=== PATIENT | female | born 1985 | race Asian ===

== ENCOUNTER 2018-02-17 05:20 | Emergency (ER) | payer OTHER ==
[~2018-02-17] VITALS: Ht 157.5 cm; Wt 68.0 kg
[~2018-02-17 05:20] MED LIST: CIPRO250 M1 PO
[2018-02-17] MEDS ORDERED: DIFLUCAN150 MG PO (05:57)
[2018-02-17 06:17] VITALS: BP 119/69
== END 2018-02-17 06:18 | disposition home or self-care (01) ==
LOC: M.ERS 05:20
DX: N76.0 Acute vaginitis (principal)

== ENCOUNTER 2018-04-08 04:20 | Emergency (ER) | payer OTHER ==
[~2018-04-08] VITALS: Ht 157.5 cm; Wt 68.0 kg
[~2018-04-08 04:20] MED LIST changes: +DIFLUCAN150 MG PO
[2018-04-08 04:57] LABS: URINE BILIRUBIN NEGATIVE (Negative); URINE BLOOD TRACE (Negative); URINE CLARITY CLEAR; URINE COLOR YELLOW; URINE GLUCOSE-RANDOM NEGATIVE (Negative); URINE KETONES NEGATIVE (Negative); URINE LEUKOCYTES-REFLEX TRACE (Negative); URINE NITRITE-REFLEX NEGATIVE (Negative); URINE PROTEIN NEGATIVE (Negative); URINE SPECIFIC GRAVITY 1.025 (1.005-1.030); URINE UROBILINOGEN 0.2 E.U./dl (0.2-1.0)
[2018-04-08 05:06] VITALS: BP 117/74
[2018-04-08 05:10] LABS: BACTERIA-REFLEX >30 Many /HPF (None Seen); CASTS None Seen /LPF (None Seen); CRYSTALS None Seen /LPF (None Seen); MUCUS 4-6 Moderate strn/LPF (None Seen); SQUAMOUS 4-10 Moderate /LPF (0-3); URINE RBC 3-10 Few /HPF (0-2); URINE WBC-REFLEX 6-15 Few /HPF (0-5)
== END 2018-04-08 05:09 | disposition home or self-care (01) ==
LOC: M.ERS 04:20
PROVIDERS: Family Medicine
DX: N89.8 Other specified noninflammatory disorders of vagina (principal)